=== PATIENT | female | born 1990 | race Two or more races ===

== ENCOUNTER 2017-08-06 10:42 | Emergency (ER) | payer BC, OTHER ==
[~2017-08-06 10:42] MED LIST: MOTR200T44 PO; PRENTAB31 PO; TYLE325T5 PO
[2017-08-06] MEDS ORDERED: KETOROLAC 30 MG/ML VIAL (J1885) IV ONE (11:15)
[2017-08-06 11:19] LABS: BASO % 0.4 % (0.0-1.0); EOS # 0.1 K/mm3 (0.0-0.50); EOS % 1.1 % (0.0-3.0); LARGE UNSTAINED CELL # 0.2 K/mm3 (0.0-0.4); LARGE UNSTAINED CELL % 1.7 % (0.0-4.0); LYMPH % 22.8 % (24.0-44.0); MEAN CORPUSCULAR HEMOGLOBIN 30.3 pg (27.0-33.0); MEAN CORPUSCULAR VOLUME 86.5 fl (80.0-96.0); MONO # 0.3 K/mm3 (0.0-0.8); MONO % 3.8 % (0.0-5.0); NEUTROPHILS % 70.2 % (36.0-66.0); PLATELET COUNT, AUTOMATED 338 k/mm3 (150-450); RED CELL DISTRIBUTION WIDTH 12.5 % (11.5-14.5); WHITE BLOOD COUNT 8.6 K/mm3 (4.0-10.0)
[2017-08-06] MEDS ORDERED: MORPHINE 2 MG/ML 1ML SYRINGE IV ONE ×2 (11:30→12:30)
[2017-08-06 11:39] LABS: ALBUMIN 4.1 GM/DL (3.2-5.2); ALBUMIN/GLOBULIN RATIO 0.95 (1.00-1.93); ALKALINE PHOSPHATASE 88 U/L (45-117); ALT/SGPT 23 U/L (12-78); ANION GAP 14 MEQ/L (8-16); AST/SGOT 12 U/L (15-37); BILIRUBIN,TOTAL 0.4 MG/DL (0.2-1.0); BLOOD UREA NITROGEN 10 MG/DL (7-18); CALCIUM LEVEL 9.2 MG/DL (8.5-10.1); CARBON DIOXIDE LEVEL 20 MEQ/L (21-32); CHLORIDE LEVEL 106 MEQ/L (98-107); CREATININE FOR GFR 0.68 MG/DL (0.55-1.02); GLOMERULAR FILTRATION RATE > 60.0 (>60); GLUCOSE, FASTING 132 MG/DL (70-105); POTASSIUM SERUM 3.4 MEQ/L (3.5-5.1); SODIUM LEVEL 140 MEQ/L (136-145); TOTAL PROTEIN 8.4 GM/DL (6.4-8.2)
--- NOTE | 2017-08-06 12:22 | REP ---
Clinical: Left flank pain. Findings: Mild left-sided obstructive uropathy with hydroureteronephrosis and periureteral stranding secondary to a 5 mm calculus at the ureterovesicle junction (images 117 - 119). The bilateral kidneys and ureters as well as collapsed bladder are otherwise normal for noncontrast evaluation. Liver, spleen, pancreas, gallbladder, bilateral adrenal glands are normal. The enteric system is without obstruction or acute inflammatory process. Pelvis demonstrates normal uterus / adnexa with IUD identified. No ascites. No free air. No obvious adenopathy. Abdominal aorta without aneurysm. Musculoskeletal structures are intact. Impression: Mild acute left-sided obstructive uropathy with a 5 mm calculus at the ureterovesicle junction. Otherwise normal appearance to the urinary tract system. Signed by Nick George MD 08/06/2017 12:14 P
[2017-08-06] MEDS ORDERED: FLOM5CAP PO (13:27)
[2017-08-06] MEDS ORDERED: PERC5TAB12 PO (13:27)
[2017-08-06 13:52] VITALS: BP 116/73
--- NOTE | 2017-08-09 08:16 | ED PDOC ---
Post-Departure Follow-Up certified letter sent regarding radiology report Lily Morris MD Aug 09, 2017 08:16
== END 2017-08-06 13:54 | disposition home or self-care (01) ==
LOC: M ED 10:42
DX: R10.32 Left lower quadrant pain (principal)
CPT/HCPCS: 74176; 80053; 85025; 96374; 96375; 96376; 99283; J1885

== ENCOUNTER 2017-08-09 01:39 | Emergency (ER) | payer BC, OTHER ==
[~2017-08-09] VITALS: Ht 162.6 cm; Wt 81.8 kg
[~2017-08-09 01:39] MED LIST changes: +FLOM5CAP PO; +PERC5TAB12 PO
[2017-08-09] MEDS ORDERED: MORPHINE 4 MG/ML 1ML SYRINGE IV PRN (02:45)
[2017-08-09] MEDS ORDERED: KETOROLAC 30 MG/ML VIAL (J1885) IV ONE (02:45)
[2017-08-09] MEDS ORDERED: NS 1,000 ML IV ONE (02:45)
[2017-08-09] MEDS ORDERED: ONDANSETRON 4MG/2ML VIAL (J2405) IV ONE (02:45)
[2017-08-09] MEDS ORDERED: D5W/0.45% SODIUM CHLORIDE 1,000 ML IV SCH (03:00)
[2017-08-09 03:02] LABS: BASO % 0.1 % (0.0-1.0); EOS # 0.1 K/mm3 (0.0-0.50); EOS % 0.9 % (0.0-3.0); LARGE UNSTAINED CELL % 0.3 % (0.0-4.0); LYMPH # 1.2 K/mm3 (1.5-6.5); LYMPH % 9.3 % (24.0-44.0); MEAN CORPUSCULAR HEMOGLOBIN 29.4 pg (27.0-33.0); MEAN CORPUSCULAR HGB CONC 33.6 g/dl (32.0-36.5); MEAN CORPUSCULAR VOLUME 87.5 fl (80.0-96.0); MONO # 0.4 K/mm3 (0.0-0.8); MONO % 3.1 % (0.0-5.0); NEUTROPHILS % 86.3 % (36.0-66.0); PLATELET COUNT, AUTOMATED 285 k/mm3 (150-450); RED CELL DISTRIBUTION WIDTH 12.6 % (11.5-14.5); WHITE BLOOD COUNT 12.7 K/mm3 (4.0-10.0)
[2017-08-09 03:22] LABS: CONTROL LINE HCG INT CTR LINE PRESENT
[2017-08-09 03:29] LABS: ALBUMIN 4.2 GM/DL (3.2-5.2); ALBUMIN/GLOBULIN RATIO 1.11 (1.00-1.93); ALKALINE PHOSPHATASE 89 U/L (45-117); ALT/SGPT 21 U/L (12-78); ANION GAP 9 MEQ/L (8-16); AST/SGOT 9 U/L (15-37); BILIRUBIN,DIRECT 0.1 MG/DL (0.0-0.2); BILIRUBIN,TOTAL 0.5 MG/DL (0.2-1.0); BLOOD UREA NITROGEN 12 MG/DL (7-18); CALCIUM LEVEL 9.3 MG/DL (8.5-10.1); CARBON DIOXIDE LEVEL 27 MEQ/L (21-32); CHLORIDE LEVEL 107 MEQ/L (98-107); CREATININE FOR GFR 0.63 MG/DL (0.55-1.02); GLOMERULAR FILTRATION RATE > 60.0 (>60); GLUCOSE, FASTING 95 MG/DL (70-105); POTASSIUM SERUM 3.7 MEQ/L (3.5-5.1); SODIUM LEVEL 143 MEQ/L (136-145)
--- NOTE | 2017-08-09 04:00 | REPUSA ---
CLINICAL HISTORY: Abdominal pain. TECHNIQUE: Multiple axial, sagittal and coronal CT images were obtained through the abdomen and pelvi s without administration of oral or IV contrast material. COMMENTS: Comparison to the prior exam performed on 08/06/2017. The liver is of uniform attenuation without mass or defect. There is no intra or extrahepatic biliary ductal dilatation. The spleen is normal. The gallbladder is within normal limits. The pancreas is of normal contour and attenuation characteristics. There is no evidence of adrenal mass. 4.5 mm obstructing stone of the left ureterovesical junction. Mild left hydroureteronephrosis. This s tone was in the distal left ureter on the prior exam. Unchanged left hydroureteronephrosis. Small amount of free pelvic fluid. Moderate large bowel fecal stasis. Suspected abnormal position of the intrauterine device. This is unchanged since the prior exam. This can be assessed by gynecologic consultation when clinically needed. There is no evidence for appendicitis. There is no bowel wall thickening. No evidence for small or la rge bowel obstruction. There is no evidence of abdominal ascites or lymphadenopathy. There is no evidence of intrinsic or extrinsic bladder mass. Images of the lung bases show no evidence of pleural or parenchymal mass. There are no pleural effusi ons. The bony structures are free of lytic or blastic lesions. IMPRESSION: Comparison to the prior exam performed on 08/06/2017. 4.5 mm obstructing stone of the left ureterovesical junction. This stone was in the distal left ureter on the prior exam. Unchanged mild left hydroureteronephrosis. Small amount of free pelvic fluid. Moderate large bowel fecal stasis. Suspected abnormal position of the intrauterine device. This is unchanged since the prior exam. This can be assessed by gynecologic consultation when clinically needed. Thank you for your kind referral of this patient.
[2017-08-09 04:30] VITALS: BP 134/80
== END 2017-08-09 04:34 | disposition home or self-care (01) ==
LOC: M ED 01:39
DX: N20.1 Calculus of ureter (principal)

== ENCOUNTER → 2017-08-13 | Outpatient (REF) | payer BC, OTHER | LOC: M SMT 08:10 | PROVIDERS: ATTEND Nurse Practitioner Women's Health | DX: N13.2 Hydronephrosis with renal and ureteral calculous obstruction (principal) ==

== ENCOUNTER → 2017-11-21 | Outpatient (REF) | payer BC, OTHER | LOC: M LAB REF 12:19 | PROVIDERS: ATTEND Physician Assistant | DX: J02.9 Acute pharyngitis, unspecified (principal) ==

== ENCOUNTER 2017-12-06 10:41 | Day surgery (SDC) | payer BC, OTHER ==
[2017-12-06 12:14] LABS: CONTROL LINE UCG INT CTR LINE PRESENT; URINE PREG TEST NEGATIVE (NEGATIVE)
[2017-12-06] MEDS ORDERED: MIDAZOLAM INJ 2 MG/2 ML VIAL (J2250) As Ordered (16:59)
[2017-12-06] MEDS ORDERED: fentaNYL 100 MCG/2 ML INJECTION (J3010) As Ordered (16:59)
[2017-12-06] MEDS: ESTROGENS VAGINAL CREAM 30GM As Ordered (17:04)
[2017-12-06] MEDS: BUPIVACAINE HCL 0.25% 30 ML VIAL As Ordered (17:35)
[2017-12-06] MEDS: SILVER NITRATE APPLICATOR As Ordered (18:00)
[2017-12-06] MEDS: ONDANSETRON 4MG/2ML VIAL (J2405) IV (18:58)
[2017-12-06] MEDS ORDERED: METOCLOPRAMIDE INJ 10MG/2ML VIAL (J2765) As Ordered (19:21)
[2017-12-06] MEDS: METOCLOPRAMIDE INJ 10MG/2ML VIAL (J2765) IV (19:27)
[2017-12-06] MEDS ORDERED: PROMETHAZINE INJ 25 MG/ML VIAL (J2550) IV (19:30)
== END 2017-12-06 20:10 | disposition home or self-care (01) ==
LOC: M SDC 20:10
DX: N75.0 Cyst of Bartholin's gland (principal); Z88.0 Allergy status to penicillin
CPT/HCPCS: 56440

== ENCOUNTER → 2019-04-28 | Outpatient (REF) | payer OTHER ==
[~2019-04-28] MED LIST changes: +FLOM0.4C39 PO; -FLOM5CAP PO
== END ==
LOC: M LAB REF 12:32
PROVIDERS: ATTEND Physician Assistant
DX: J02.9 Acute pharyngitis, unspecified (principal)

== ENCOUNTER → 2022-09-10 | Outpatient (REF) | payer OTHER | LOC: M SFHCWAGY 13:51 | PROVIDERS: ATTEND Advanced Practice Midwife | DX: Z12.4 Encounter for screening for malignant neoplasm of cervix (principal) | CPT/HCPCS: 87624; G0123 ==

== ENCOUNTER → 2025-03-30 | Outpatient (CLI) | payer BC, OTHER ==
[~2025-03-30] MED LIST changes: -FLOM0.4C39 PO; +TAMS-18 PO
== END ==
LOC: M SOG 07:49
PROVIDERS: ATTEND Physician Assistant
DX: M79.642 Pain in left hand (principal)

== ENCOUNTER → 2025-09-21 | Outpatient (REF) | payer OTHER ==
[2025-09-23 14:37] LABS: HPV APTIMA Not Detected (Not Detected)
== END ==
LOC: M SFHCWAGY 13:08
PROVIDERS: ATTEND Advanced Practice Midwife
DX: Z12.4 Encounter for screening for malignant neoplasm of cervix (principal)